=== PATIENT | male | born 1980 | race Caucasian/White ===

== ENCOUNTER 2022-02-09 13:08 | Emergency (ER) | payer MEDICAID, SELFPAY ==
[2022-02-09 13:09] VITALS: BP 167/123; PULSE 119; RESP 18; TEMP 36.6; O2SAT 98; BMI 19.2
--- NOTE | 2022-02-09 13:20 | EDS_ITS ---
HPI History of Present Illness Chief Complaint: Dental Detail of Chief Complaint: Dental pain and swelling. Patient thinks he has a tooth coming in Informant: patient Onset/Context/Timing Onset: Days Context: Sudden Onset Timing: Continuous Quality: Pain with limited ability to open mouth and swelling near the angle of the Location: Previously documented Current Severity: Mild Maximum Severity: Moderate Worsened by: Nothing specific Associated Symptoms Assocated Symptom - Dental: jaw swelling and face swelling; Negative for fever, cold sensitivity or hot sensitivity Narrative Narrative: Patient is a 42-year-old male who presents because he is concerned he has an impacted molar. Has had problems for a while. He had an appointment to be seen today by dentist. There was a dental emergency and rescheduled for next week. He denies fever, chills night sweats. Denies a traumatic fever, heart murmur, SBE or being immune suppressed. Prior similar symptoms: Yes Recent Illness/Hospitalization: No PFSH PFSH Medical History Depression Home Medications hydrocodone-acetaminophen 5-325mg 5mg-325mg 1 tab PO Q6H PRN PRN Pain 3 days #10 TABLETS 02/09/22 [Rx Last Taken Unknown] naproxen 500 mg tablet 500 mg PO BID #14 tabs 02/09/22 [Rx Last Taken Unknown] penicillin V potassium 250 mg tablet 500 mg PO 4X/DAY #40 tabs 02/09/22 [Rx Last Taken Unknown] sertraline 25 mg tablet 25 tab PO DAILY 02/09/22 [History Last Taken Unknown] Allergy/AdvReac Type Severity Reaction Status Date / Time No Known Allergies Allergy Verified 02/09/22 13:12 Surgical History no surgical history no surgical history Social History (Updated 02/09/22 @ 13:[address] Donato Womack MD) household members: spouse Smoking Status: Current every day smoker tobacco type: cigarettes alcohol intake: current substance use type: marijuana ROS ROS ED Constitutional Constitutional ED: Denies chills, fever(s), subjective, sweats or weight loss ENT ENT ED: Reports other Details: Read HPI ; Denies ear pain, rhinorrhea or sore throat Cardiovascular Cardiovascular: Denies chest pain or palpitations Respiratory/Chest Respiratory/Chest: Denies cough or dyspnea Musculoskeletal Musculoskeletal: Denies neck pain Integumentary Denies abscess, Abrasions or rash Neurologic Neurologic: Denies headache(s), paresthesias or weakness Hematologic/Lymphatic Hematologic/Lymphatic: Denies easy bleeding, easy bruising or lymphadenopathy Allergic/Immunologic Allergic/Immunologic ED: Denies mouth swelling, tongue swelling or urticaria EXAM Physical Exam Const Vital Signs: 02/09/22 13:09 Temperature 98 F Temperature Source Temporal Pulse Rate 119 H Respiratory Rate 18 Blood Pressure 167/123 H Blood Pressure Mean 137 Pulse Ox 98 Oxygen Delivery Method Room Air Positive well nourished and well developed; Negative for obese, cachectic, contractures or unkempt General Appearance ED: well developed and NAD; Negative for unkempt, cachectic or contractures Nutritional Appearance: Negative for cachectic or obese HEENT Reports TM's clear HEENT Narrative: Trachea is midline. There is no inspiratory or expiratory stridor. There is no cervical lymphadenopathy. Patient does have trismus. There is clicking with opening closing at the right TMJ. Negative for trauma or tenderness Face and Sinus: Negative for sinuses nontender Tympanic Membrane ED: Yes TM's clear Mouth ED: No oral and palatal mucosa normal, Yes lips normal, Yes tongue normal, Yes salivary gland normal and No mouth trauma Mouth: No oral and palatal mucosa normal, lips normal, tongue normal, salivary gland normal and No mouth trauma Teeth and Gingiva: abnormal tooth and associated gingiva, caries, gingiva abnormal, poor dentition and teeth discoloration Throat: posterior oropharynx normal Eyes PERRL and EOMs intact bilaterally General Eye ED: Negative for pale conjunctiva or scleral icterus Neck no lymphadenopathy, supple and no JVD General: normal visual inspection; Negative for anterior neck swelling, tenderness or submandibular swelling Lymph Lymphatic: no lymphadenopathy noted Resp normal respiratory effort, no retractions and clear to auscultation bilaterally Cardio regular rate, regular rhythm, S1 normal heart sound, S2 normal heart sound and no murmurs Extremity normal to inspection and no joint enlargement Neuro oriented x3, CN's II-XII intact bilaterally and moves all extremities Psych mental status grossly normal Appearance: Negative for unkempt Skin no rashes or lesions noted and no wounds MDM MDM MDM Narrative Medical decision making narrative: Patient has findings consistent with a dental abscess. He also has poor dentition with evidence of gingivitis and periodontal disease. There is no evidence of Ludewig's angina. The floor of the mouth/sublingual area is normal. The submental region is soft and normal. Patient was treated with anti- inflammatory, opiate analgesia and antibiotic. Discharge Plan Triage Chief Complaint: Dental ED Provider: Donato Womack Dx/Rx/DC Orders Clinical Impression: Abscess, dental, Dental caries limited to enamel Instructions: ED Dental Abscess Prescriptions: New penicillin V potassium 250 mg tablet 500 mg PO 4X/DAY Qty: 40 0RF hydrocodone-acetaminophen [hydrocodone-acetaminophen] 5-325 mg tablet 1 tab PO Q6H PRN PRN (Reason: Pain) 3 Days Qty: 10 0RF naproxen 500 mg tablet 500 mg PO BID Qty: 14 0RF No Action sertraline 25 mg tablet 25 tab PO DAILY Label Comments: take 1 tablet by mouth once daily Primary Care Provider: Inocencio Gracia Referrals: Inocencio Gracia MD [Primary Care Provider] - Dentist,Your [STAFF PHYSICIAN] - As soon as possible Disposition Disposition: Home, Self Care
[2022-02-09] MEDS: Naproxen 250 MG Tablet 500 MG PO (13:28)
[2022-02-09] MEDS: Penicillin Vk 250 MG Tablet 500 MG PO (13:28)
[2022-02-09] MEDS: HYDROcodone Bitartrate/Apap 5/325 Tablet PO (13:28)
== END 2022-02-09 13:47 | disposition home or self-care (01) ==
LOC: ED 13:46
PROVIDERS: Emergency Provider Emergency Medicine; PCP Internal Medicine; Visit Provider Emergency Medicine
DX: K04.7 Periapical abscess without sinus (principal); K02.9 Dental caries, unspecified; F17.210 Nicotine dependence, cigarettes, uncomplicated; F12.90 Cannabis use, unspecified, uncomplicated
CPT/HCPCS: 99282